=== PATIENT | female | born 1950 | race Two or more races ===

== ENCOUNTER → 2017-08-29 | Outpatient (CLI) | payer OTHER | END | disposition home or self-care (01) | LOC: MAMO-SONO 09:45 | DX: Z12.31 Encounter for screening mammogram for malignant neoplasm of breast (principal); N61.0 Mastitis without abscess ==

== ENCOUNTER → 2017-09-16 | Outpatient (CLI) | payer OTHER | END | disposition home or self-care (01) | LOC: NUCLEAR 09-02 11:00 | DX: M81.0 Age-related osteoporosis without current pathological fracture (principal) ==

== ENCOUNTER 2018-12-21 12:36 | Outpatient (CLI) | payer OTHER | END 2018-12-21 12:49 | disposition home or self-care (01) | LOC: MAMO-SONO 12:36 | DX: Z12.31 Encounter for screening mammogram for malignant neoplasm of breast (principal); Z87.898 Personal history of other specified conditions; N60.11 Diffuse cystic mastopathy of right breast; N60.12 Diffuse cystic mastopathy of left breast ==

== ENCOUNTER 2019-04-10 09:07 | Emergency (ER) | payer OTHER ==
[~2019-04-10] VITALS: Ht 154.9 cm; Wt 57.2 kg
[2019-04-10] MEDS ORDERED: LOSARTAN-HCTZ1 EACH PO (09:20)
[2019-04-10] MEDS ORDERED: SIMVASTATIN5 MG PO (09:21)
== END 2019-04-10 12:41 | disposition home or self-care (01) ==
LOC: ER 09:07
DX: H72.93 Unspecified perforation of tympanic membrane, bilateral (principal); J32.8 Other chronic sinusitis

== ENCOUNTER 2021-10-23 09:25 | Outpatient (CLI) | payer OTHER ==
[~2021-10-23 09:25] MED LIST: LOSARTAN-HCTZ1 EACH PO; SIMVASTATIN5 MG PO
== END 2021-10-23 09:26 | disposition home or self-care (01) ==
LOC: NUCLEAR 09:25
PROVIDERS: ATTEND Family Medicine
DX: M81.0 Age-related osteoporosis without current pathological fracture (principal); Z91.013 Allergy to seafood; Z88.6 Allergy status to analgesic agent; Z88.8 Allergy status to other drugs, medicaments and biological substances

== ENCOUNTER 2023-02-22 07:29 | Outpatient (CLI) | payer OTHER | END 2023-02-22 07:31 | disposition home or self-care (01) | LOC: NUCLEAR 07:29 | DX: E05.00 Thyrotoxicosis with diffuse goiter without thyrotoxic crisis or storm (principal) | CPT/HCPCS: 78014; A9528 ==

== ENCOUNTER 2023-02-23 07:31 | Outpatient (CLI) | payer OTHER | END 2023-02-23 07:32 | disposition home or self-care (01) | LOC: NUCLEAR 07:31 | DX: E05.00 Thyrotoxicosis with diffuse goiter without thyrotoxic crisis or storm (principal) | CPT/HCPCS: 78014; A9528 ==